=== PATIENT | female | born 1985 | race Two or more races ===

== ENCOUNTER 2016-06-07 10:07 | Emergency (ER) | payer OTHER ==
[2016-06-07 10:35] VITALS: BP 125/83; PULSE 86; RESP 20; TEMP 99; O2SAT 97
[2016-06-07] MEDS ORDERED: predniSONE 20 MG TAB PO ONE (10:54)
--- NOTE | 2016-06-07 10:54 | UCPHY ---
H & P Time Seen by Provider: 06/07/16 10:31 Patient Type: New HPI/ROS: CHIEF COMPLAINT: cough HISTORY OF PRESENT ILLNESS: Patient is a 22-year-old female who presents emergency department with 2 weeks of worsening cough. Her cough is productive of yellow sputum. It is moderate. She denies chest pain. No nausea or vomiting. No abdominal pain. Patient reports subjective fever and chills. No leg pain or swelling. Patient has had a flu vaccine. REVIEW OF SYSTEMS: My complete review of systems is negative except as mentioned in the HPI. Past Medical/Surgical History: Denies Smoking Status: Never smoked Physical Exam: 37.2, 125/83, 86, 20, 97% on room air GENERAL: Well-appearing, in no acute distress, alert. HEENT: Eyes normal to inspection, normal pharynx, no signs of dehydration. NECK: No thyromegaly, no lymphadenopathy, supple. RESPIRATORY: Clear to auscultation bilaterally, no rales, rhonchi or wheezing. CVS: Regular rate and rhythm, no rubs, murmurs, or gallops. ABDOMEN: Soft, nontender, nondistended, no organomegaly. BACK: Normal to inspection, no CVA tenderness. SKIN: Normal color, no rash, warm, dry. No pallor. EXTREMITIES: No pedal edema, no calf tenderness, no Homans sign or cords, no joint swelling. NEURO/PSYCH: [Alert and oriented, normal mood and affect, normal motor sensory exam. Constitutional: Initial Vital Signs Temperature (C) 37.2 C 06/07/16 10:23 Heart Rate 86 06/07/16 10:23 Respiratory Rate 20 06/07/16 10:23 Blood Pressure 125/83 H 06/07/16 10:23 O2 Sat (%) 97 06/07/16 10:23 O2 Delivery Mode Room Air Allergies/Adverse Reactions: No Known Allergies Allergy (Unverified 06/07/16 10:35) Home Medications: Medication Instructions Recorded NK [No Known Home Meds] 06/07/16 Medical Decision Making ED Course/Re-evaluation: I discussed possible etiologies and answered all her questions. Because the patient's cough is persisting for 2 weeks she will be given steroid and antibiotic. She was given both prednisone and azithromycin. I answered all her questions prior to leaving. She will return with worsening symptoms. Warnings were given prior to leaving. Differential Diagnosis: My differential includes but is not limited to bronchitis, pneumonia, influenza , asthma, pulmonary embolus commented bacteremia, sepsis Departure - Departure Disposition: Home, Routine, Self-Care Clinical Impression: Bronchitis Condition: Good Instructions: Acute Bronchitis (ED) Additional Instructions: Take your entire course of antibiotics and steroids. Return with worsening symptoms or concerns. Referrals: Laurie Askew MD [Medical Doctor] - 5-7 days, if not improved - PQRS PQRS Measurement: My PQRS negative my PQRS negative my PQRS negative my PQRS negative 134: Depression screening and followup, PRIME MD-PHQ2 (12 years and older) Over the last 2 weeks, how often have you been bothered by any of the following problems? 1. Feeling down, depressed, or hopeless? 2. Little interest or pleasure in doing things? Patient answered no to both 1 and 2 130: Documentation of medications. Reviewed all patient medications, doses, route and frequency. 226: Do you smoke? No.
== END 2016-06-07 11:11 | disposition home or self-care (01) ==
LOC: CED 10:07
DX: R05 Cough (principal); R09.3 Abnormal sputum
CPT/HCPCS: 99203-PO; G0463-PO